=== PATIENT | male | born 1995 | race Caucasian/White ===

== ENCOUNTER 2022-07-07 05:56 | Emergency (ER) | payer MEDICAID ==
[~2022-07-07] VITALS: Ht 177.8 cm; Wt 107.0 kg
[2022-07-07 06:02] VITALS: BP 134/92
[2022-07-07 10:21] LABS: CLARITY URINE CLEAR (CLEAR); COLOR URINE YELLOW (YELLOW); KETONES URINE TRACE (NEGATIVE); LEUKOCYTE ESTERASE URINE TRACE (NEGATIVE); NITRITE URINE NEGATIVE (NEGATIVE); OCCULT BLOOD URINE TRACE (NEGATIVE); PH URINE 5.5 (4.5-8.0); PROTEIN URINE TRACE (NEGATIVE); SPECIFIC GRAVITY URINE 1.023 (1.005-1.030); UROBILINOGEN URINE 0.2 E.U./dL (0.2-1.0)
[2022-07-07] MEDS ORDERED: IBUP-2028 MT (10:56)
== END 2022-07-07 11:11 | disposition home or self-care (01) ==
LOC: ER 05:56
DX: M54.50 Low back pain, unspecified (principal)
CPT/HCPCS: 81003; 99283